=== PATIENT | male | born 1990 | race Caucasian/White ===

== ENCOUNTER 2017-04-04 16:56 | Emergency (ER) | payer OTHER ==
[~2017-04-04] VITALS: Ht 180.3 cm; Wt 115.2 kg
[2017-04-04 17:44] VITALS: Ht 180.3 cm; Wt 115.2 kg
[2017-04-04 21:00] VITALS: BP 148/89
== END 2017-04-04 21:00 | disposition home or self-care (01) ==
LOC: ED 16:56
DX: H66.91 Otitis media, unspecified, right ear (principal); B34.9 Viral infection, unspecified